=== PATIENT | female | born 1995 | race Caucasian/White ===

== ENCOUNTER 2016-07-01 22:21 | Outpatient (CLI) | payer OTHER ==
[~2016-07-01 22:21] MED LIST: AZIT250T94 PO; IBUP-1542 PO; PRED20TA PO
[2016-07-01] MEDS ORDERED: FER325 PO (23:02)
[2016-07-01] MEDS ORDERED: PREN1TAB79 PO (23:02)
[2016-07-01] MEDS ORDERED: OMEG-144 PO (23:04)
[2016-07-01 23:42] LABS: ADD SCAN DIFF NO
[2016-07-01 23:44] LABS: BASOPHILS % 0.3 % (0.0-2.0); EOSINOPHILS # 0.2 10^3/ul (0.0-0.5); EOSINOPHILS % 1.4 % (0.0-7.0); HEMATOCRIT 31.3 % (37.0-47.0); HEMOGLOBIN 10.5 g/dl (12.0-16.0); LYMPHOCYTES # 2.5 10^3/ul (0.8-2.9); LYMPHOCYTES % 22.4 % (18.0-55.0); MEAN CORPUSCULAR HEMOGLOBIN 29.5 pg (29.0-33.0); MEAN CORPUSCULAR HGB CONC 33.5 g/dl (32.0-37.0); MEAN CORPUSCULAR VOLUME 87.9 fl (72.0-104.0); MEAN PLATELET VOLUME 10.1 fl (7.4-10.4); MONOCYTE # 0.8 10^3/ul (0.3-0.9); MONOCYTES % 7.3 % (0.0-13.0); NEUTROPHIL # 7.5 10^3/ul (1.6-7.5); NEUTROPHILS % 68.1 % (30.0-74.0); PLATELET COUNT 314 10^3/UL (140-415); RED BLOOD COUNT 3.56 10^6/ul (4.20-5.40); RED CELL DISTRIBUTION WIDTH 13.2 % (11.5-14.5)
[2016-07-01 23:59] LABS: ADD UMIC NO; URINE BILIRUBIN (Dip) NEGATIVE (NEGATIVE); URINE BLOOD (Dip) NEGATIVE (NEGATIVE); URINE COLOR LT. YELLOW (YELLOW); URINE GLUCOSE (Dip) NEGATIVE (NEGATIVE); URINE KETONES (Dip) NEGATIVE (NEGATIVE); URINE LEUKOCYTE ESTERASE (Dip) NEGATIVE (NEGATIVE); URINE NITRITE (Dip) NEGATIVE (NEGATIVE); URINE TOTAL PROTEIN (Dip) NEGATIVE (NEGATIVE); URINE UROBILINOGEN (Dip) 0.2 E.U./dL (0.1-1.0)
--- NOTE | 2016-07-02 00:16 | RADRPT ---
PROCEDURE: Limited OB ultrasound CLINICAL INDICATION: Vaginal bleeding. TECHNIQUE: Limited sonographic evaluation of the gravid uterus was performed to assess the placent a. COMPARISON: None FINDINGS: Single live intrauterine with a heart rate 157 beats per minute is present. Fetus is in c ephalic presentation. The placenta is posterior and grade 1. There is no evidence for placental ab ruption or placenta previa. Cervix is 3.7 cm in length. IMPRESSION: Posterior placenta without evidence for placenta previa or abruption. RPTAT: HMVK .Will Montoya MD, Date Time Electronically viewed and signed by .Will Montoya MD, MD on 07/02/2016 00:15 .K/
--- NOTE | 2016-07-02 00:39 | QN ---
Documentation Comment Laborist Dr Becerril's pt 20 y.o. G1 with an IUP at 26w4d c/o bleeding. Pt had intercourse at 1500 07/01. She also fell yesterday but only hit her right knee, not her belly. No leaking. Denies any contractions or stomach tightening. PMHx: none. PSHx: arm surgery after a break. NKDA. BP 119/56 T=98.1 NST: baseline 140 bpm with accels to 155bpm. No decels. No UC's. Cx is 3.7 cm and closed. No previa or evidence of abruption. Placenta is posterior. U/A is negative. Hgb 10.5. Plts 314K. No blood noted since arrival. A: IUP at 26w4d. Spotting. P: D/C home. Pelvic rest x 2 weeks. NATALIA TORRES MD Jul 02, 2016 00:39
--- NOTE | 2016-07-02 00:47 | TRIAGE ---
OB Triage Datetime Report Generated by CPN: 07/02/2016 00:46 Datetime: 07/02/2016 00:27 Stage of : OB Triage Datetime: 07/01/2016 23:40 Stage of : OB Triage Labor Evaluation Frequency: NONE Monitor Mode: External Heart Rate FHR Baseline Rate: 140 Monitor Mode: External US Variability: Moderate 6-25 bpm Accelerations: 10X10 Decelerations: None Category: Category I Pain Assessment Pain Presence: None/Denies Datetime: 07/01/2016 23:29 Stage of : OB Triage Comments: EFM MONITOR OFF, DUE TO US TECH AT BEDSIDE FOR CL AND PLACENTA POSITION Datetime: 07/01/2016 22:54 Stage of : OB Triage Datetime: 07/01/2016 22:45 Stage of : OB Triage Maternal Assessment Level of Consciousness: Fully Conscious DTR's/Clonus: DTRs 2+; No Clonus Headache: Denies Blurred Vision: No Respiratory Effort: Unlabored; Regular Rhythm; Equal Expansion Breath Sounds, Left: Clear and Equal Breath Sounds, Right: Clear and Equal Nausea/Vomiting: Denies RUQ Epigastric Pain: Denies Lower Extremities Edema: None Upper Extremities Edema: None Facial Edema: None Temperature Route: Oral Fall Risk Assessment History of Falling: (0) No Secondary Diagnosis: (0) No Ambulatory Aid: (0) Bedrest/Nurse Assist IV Therapy: (0) No Gait: (0) Normal/Bedrest/Immobile Mental Status: (0) Oriented to Own Ability Fall Score: 0 Fall Risk Score Definition: No Risk: No action required Labor Evaluation Frequency: NONE Monitor Mode: External Heart Rate FHR Baseline Rate: 140 Monitor Mode: External US Variability: Moderate 6-25 bpm Accelerations: 10X10 Decelerations: None Category: Category I Pain Type: N/A Datetime: 07/01/2016 22:36 EGA: 26.3 Datetime: 07/01/2016 22:34 Time of Arrival: 07/01/2016 22:20 Arrived By: Wheelchair Arrived From: Home Chief Complaint: PT C/O VAGINAL BLOODY SHOW Movement: Decreased Contractions: Denies/Absent Rupture of Membranes: Denies Vaginal Bleeding: None Vaginal Discharge: Denies Recent Sexual Intercouse: Yes Abdominal Trauma: Not Applicable Patient Complaints: None Provider Notified: DR OLIVAREZ Initial Plan: TOCO AND EFM APPLIED, MONITOR UCs _ FHR.
== END 2016-07-02 00:30 | disposition home or self-care (01) ==
LOC: OBT 22:21 → L-D 22:22 → OBT 07-02 00:30
PROVIDERS: ATTEND Obstetrics & Gynecology
DX: O26.852 Spotting complicating pregnancy, second trimester (principal); Z3A.26 26 weeks gestation of pregnancy
CPT/HCPCS: 76815; 76817; 81003; 85025

== ENCOUNTER 2016-08-29 07:02 | Emergency (ER) | payer OTHER ==
[~2016-08-29] VITALS: Ht 157.5 cm; Wt 88.0 kg
[~2016-08-29 07:02] MED LIST changes: -AZIT250T94 PO; +FER325 PO; -IBUP-1542 PO; +OMEG-144 PO; -PRED20TA PO; +PREN1TAB79 PO
[2016-08-29 07:09] VITALS: Ht 157.5 cm; Wt 88.0 kg
[2016-08-29 07:55] LABS: ADD SCAN DIFF NO
[2016-08-29 08:01] LABS: BASOPHILS % 0.3 % (0.0-2.0); EOSINOPHILS # 0.1 10^3/ul (0.0-0.5); EOSINOPHILS % 1.3 % (0.0-7.0); HEMATOCRIT 32.9 % (37.0-47.0); HEMOGLOBIN 11.3 g/dl (12.0-16.0); LYMPHOCYTES # 1.8 10^3/ul (0.8-2.9); LYMPHOCYTES % 19.5 % (18.0-55.0); MEAN CORPUSCULAR HEMOGLOBIN 29.2 pg (29.0-33.0); MEAN CORPUSCULAR HGB CONC 34.3 g/dl (32.0-37.0); MEAN PLATELET VOLUME 9.7 fl (7.4-10.4); MONOCYTE # 0.5 10^3/ul (0.3-0.9); MONOCYTES % 5.7 % (0.0-13.0); NEUTROPHIL # 6.7 10^3/ul (1.6-7.5); NEUTROPHILS % 72.6 % (30.0-74.0); PLATELET COUNT 307 10^3/UL (140-415); RED BLOOD COUNT 3.87 10^6/ul (4.20-5.40); WHITE BLOOD COUNT 9.3 10^3/ul (4.8-10.8)
[2016-08-29 08:41] LABS: ALBUMIN 3.5 g/dl (3.3-4.9); ALBUMIN/GLOBULIN RATIO 1.59; BILIRUBIN,INDIRECT 0.4 mg/dl (0-1.1); BILIRUBIN,TOTAL 0.4 mg/dl (0.2-1.3); CALCIUM 8.7 mg/dl (8.4-10.2); CREATININE 0.51 mg/dl (0.44-1.00); TOTAL PROTEIN 5.7 g/dl (6.1-8.1)
--- NOTE | 2016-08-29 17:23 | ERD ---
ER Documentation Chief Complaint Date/Time DATE: 08/29/16 TIME: 17:21 Chief Complaint sent by her OB for lab work request, pt gained excessive weight in 2 weeks HPI This is a 20-year-old female stating that she is 34 weeks presenting to the emergency department to get blood work. Patient states that she was referred by her OB to check her liver enzymes. Patient states that she has gained 12 pounds in 2 weeks. She denies any abdominal pain, vaginal bleeding, headaches, chest pain, shortness of breath. She does not take any medications. ROS All systems reviewed and are negative except as per history of present illness. Medications Home Meds Reported Medications [place]-3/Dha/Epa/Fish Oil (Fish Oil 500 mg Softgel) 1 Each Capsule, 1 EACH PO, CAP 07/01/16 Ferrous Sulfate* (Ferrous Sulfate*) 325 Mg Tabec, 325 MG PO DAILY, TAB 07/01/16 Vit W-Ca,Fe,FA(<1 mg) ( Vitamins) 1 Each Tablet, 1 EACH PO DAILY, TAB 07/01/16 Allergies Allergies: Coded Allergies: No Known Allergy (Unverified , 11/13/15) PMhx/Soc Hx Alcohol Use: No Hx Substance Use: No Hx Tobacco Use: No Physical Exam Vitals Vital Signs Date Time Temp Pulse Resp B/P Pulse Ox O2 Delivery O2 Flow Rate FiO2 08/29/16 07:09 98.5 80 18 111/70 99 Physical Exam Const: [] Head: Atraumatic Eyes: Normal Conjunctiva ENT: Normal External Ears, Nose and Mouth. Neck: Full range of motion..~ No meningismus. Resp: Clear to auscultation bilaterally Cardio: Regular rate and rhythm, no murmurs Abd: Soft, non tender, distended due to . Normal bowel sounds Skin: No petechiae or rashes Back: No midline or flank tenderness Ext: No cyanosis, or edema Neur: Awake and alert Psych: Normal Mood and Affect Result Diagram: 08/29/16 0751 08/29/16 0751 Results 24 hrs Laboratory Tests Test 08/29/16 07:51 White Blood Count 9.310^3/ul Red Blood Count 3.8710^6/ul Hemoglobin 11.3g/dl Hematocrit 32.9% Mean Corpuscular Volume 85.0fl Mean Corpuscular Hemoglobin 29.2pg Mean Corpuscular Hemoglobin Concent 34.3g/dl Red Cell Distribution Width 13.0% Platelet Count 85571^3/UL Mean Platelet Volume 9.7fl Neutrophils % 72.6% Lymphocytes % 19.5% Monocytes % 5.7% Eosinophils % 1.3% Basophils % 0.3% Nucleated Red Blood Cells % 0.0/100WBC Neutrophils # 6.710^3/ul Lymphocytes # 1.810^3/ul Monocytes # 0.510^3/ul Eosinophils # 0.110^3/ul Basophils # 0.010^3/ul Nucleated Red Blood Cells # 0.010^3/ul Sodium Level 136mmol/L Potassium Level 4.0mmol/L Chloride Level 108mmol/L Carbon Dioxide Level 23mmol/L Anion Gap 9 Blood Urea Nitrogen 6mg/dl Creatinine 0.51mg/dl Glucose Level 81mg/dl Calcium Level 8.7mg/dl Total Bilirubin 0.4mg/dl Direct Bilirubin 0.00mg/dl Indirect Bilirubin 0.4mg/dl Aspartate Amino Transf (AST/SGOT) 20IU/L Alanine Aminotransferase (ALT/SGPT) 32IU/L Alkaline Phosphatase 106IU/L Total Protein 5.7g/dl Albumin 3.5g/dl Globulin 2.20g/dl Albumin/Globulin Ratio 1.59 Lipase 49U/L Procedures/MDM This is a 20-year-old female who states she is 34 weeks presenting to the emergency department referred by her DISSOLVER OPERATOR to get basic blood work since she has gained 12 pounds in 2 weeks. This is likely due to her and excessive eating and not exercising. Blood work has been done in the ED, there was no evidence of leukocytosis or anemia. CMP did not show any evidence of renal, liver or electrolyte abnormalities. Diagnostic testing was provided to patient and discussed with her to follow-up with her OB/ IMPROVEMENT RN for further evaluation management. Discussed return the ER for any worsening symptoms. She understands and agrees with this plan Departure Diagnosis: Primary Impression: Encounter for laboratory test Condition: Stable Patient Instructions: : Your Weight, : Planning Your Exercise Routine Referrals: NO PRIMARY,CARE PHYSICIAN (PCP) Additional Instructions: FOLLOW UP WITH YOUR PRIMARY CARE PHYSICIAN TOMORROW.Return to this facility if you are not improving as expected. Return to this facility if you are not improving as expected. SELINA VELASCO PA-C Aug 29, 2016 17:23
== END 2016-08-29 09:15 | disposition home or self-care (01) ==
LOC: FTE 07:02
DX: Z36 Encounter for antenatal screening of mother (principal); Z3A.34 34 weeks gestation of pregnancy
CPT/HCPCS: 36415; 80053; 83690; 85025; Z7502; 99283

== ENCOUNTER 2016-09-29 12:19 | Inpatient (IN) | payer OTHER ==
[~2016-09-29] VITALS: Ht 165.1 cm; Wt 93.9 kg
[2016-09-29] MEDS ORDERED: PNV11TAB PO (12:50)
[2016-09-29] MEDS ORDERED: CALC600T11 PO (12:51)
[2016-09-29 13:03] VITALS: BP 127/70; PULSE 94; RESP 18
--- NOTE | 2016-09-29 13:45 | RADRPT ---
PROCEDURE: US biophysical profile. CLINICAL INDICATION: Ruptured membranes. TECHNIQUE: Multiple sonographic images of the uterus were obtained. The images were revi ewed on a PACS workstation. COMPARISON: No prior studies are available for comparison. FINDINGS: There is a single live intrauterine gestation. heart rate is 152 beats per minute. The position is cephalic. The placenta is posterior grade II with no abruption or previa. The ISAC is 6.8 cm. (Normal = 5-20 cm.) Breathing Movement: 2 Gross Body Movement: 2 Tone: 2 Qualitative Amniotic Fluid Volume: 2 TOTAL: 8 IMPRESSION: 1. The biophysical score is 8/8. RPTAT: QQ .Beto Noble MD, MD Date Time Electronically viewed and signed by .Beto Noble MD, on 09/29/2016 13:45 .R/
[2016-09-29] MEDS ORDERED: MINERAL OIL LIGHT 10 ML VIAL TOP PRN (14:30)
[2016-09-29] MEDS ORDERED: OXYTOCIN 30 UNITS/LR 500 ML IV SCH ×2 (14:30)
[2016-09-29] MEDS ORDERED: MISOPROSTOL 200 MCG TAB PR PRN (14:30)
[2016-09-29] MEDS ORDERED: BUTORPHANOL 2 MG INJ IV PRN ×2 (14:30)
[2016-09-29] MEDS ORDERED: METHYLERGONOVINE 0.2 MG INJ IM PRN (14:30)
[2016-09-29] MEDS ORDERED: OXYTOCIN 30 UNITS/LR 500 ML IV PRN (14:30)
[2016-09-29] MEDS ORDERED: LIDOCAINE 1% (MPF) 30 ML INJ INJ PRN (14:30)
[2016-09-29] MEDS ORDERED: AMPICILLIN 2 GM/NS (PMX) 100 ML IV ONE (14:30)
[2016-09-29] MEDS ORDERED: IBUPROFEN 600 MG TAB PO PRN (14:30)
[2016-09-29] MEDS ORDERED: CARBOPROST 250 MCG INJ IM PRN (14:30)
[2016-09-29] MEDS: LACTATED RINGER'S 1,000 ML IV SCH ×2 (14:38→22:03)
[2016-09-29] MEDS ORDERED: LACTATED RINGER'S 1,000 ML IV PRN (15:00)
[2016-09-29 15:34] LABS: BASOPHILS % 0.2 % (0.0-2.0); EOSINOPHILS # 0.1 10^3/ul (0.0-0.5); EOSINOPHILS % 0.9 % (0.0-7.0); HEMATOCRIT 33.7 % (37.0-47.0); HEMOGLOBIN 11.3 g/dl (12.0-16.0); LYMPHOCYTES # 1.6 10^3/ul (0.8-2.9); LYMPHOCYTES % 15.3 % (18.0-55.0); MEAN CORPUSCULAR HEMOGLOBIN 28.5 pg (29.0-33.0); MEAN CORPUSCULAR HGB CONC 33.5 g/dl (32.0-37.0); MEAN CORPUSCULAR VOLUME 85.1 fl (72.0-104.0); MEAN PLATELET VOLUME 10.4 fl (7.4-10.4); MONOCYTE # 0.5 10^3/ul (0.3-0.9); MONOCYTES % 4.9 % (0.0-13.0); NEUTROPHIL # 8.4 10^3/ul (1.6-7.5); NEUTROPHILS % 78.1 % (30.0-74.0); PLATELET COUNT 346 10^3/UL (140-415); RED BLOOD COUNT 3.96 10^6/ul (4.20-5.40); RED CELL DISTRIBUTION WIDTH 13.4 % (11.5-14.5); WHITE BLOOD COUNT 10.7 10^3/ul (4.8-10.8)
--- NOTE | 2016-09-29 15:39 | TRIAGE ---
OB Triage Datetime Report Generated by CPN: 09/29/2016 15:39 Datetime: 09/29/2016 15:07 Membrane Status: Ruptured Datetime: 09/29/2016 15:00 Labor Evaluation Frequency: OCC Monitor Mode: External Duration (sec)2399: 60-90 Quality: Mild Pattern: Normal: <= 5 Contractions in 10 Minutes Resting Tone [place]: Relaxed Heart Rate FHR Baseline Rate: 135 FHR Baseline Changes: No Baseline Change Variability: Moderate 6-25 bpm Accelerations: 15X15 Comments: SPORADICALLY OFF MONITOR DUE TO PT POSIITON Datetime: 09/29/2016 14:00 Stage of : Labor Labor Evaluation Frequency: 4-12 Monitor Mode: External Duration (sec)2399: 40-80 Quality: Mild Pattern: Normal: <= 5 Contractions in 10 Minutes Resting Tone [place]: Relaxed Heart Rate FHR Baseline Rate: 140 Monitor Mode: External US FHR Baseline Changes: No Baseline Change Variability: Moderate 6-25 bpm Accelerations: 15X15 Decelerations: None Category: Category I Datetime: 09/29/2016 13:06 Labor Evaluation Frequency: 4-12 Monitor Mode: External Duration (sec)2399: 40-80 Quality: Mild Pattern: Normal: <= 5 Contractions in 10 Minutes Resting Tone [place]: Relaxed Heart Rate FHR Baseline Rate: 140 Monitor Mode: External US FHR Baseline Changes: No Baseline Change Variability: Moderate 6-25 bpm Accelerations: 15X15 Decelerations: None Category: Category I Datetime: 09/29/2016 12:56 Time of Arrival: 09/29/2016 12:09 EGA: 39.2 Arrived By: Ambulatory Arrived From: Home Chief Complaint: PT REPORTS SEVERAL GUSHES OF WATER, STARTING AT 0500 Movement: Present Contractions: Occasional Time Contractions Began: 09/29/2016 07:00 Rupture of Membranes: Unsure Vaginal Bleeding: None Vaginal Discharge: Present Recent Sexual Intercouse: Yes Abdominal Trauma: Not Applicable Patient Complaints: Cramping Time Provider Notified: 09/29/2016 14:10 Provider Notified: DR. OLIVAREZ Initial Plan: EFM x2, SVE, ROM+, BPP Datetime: 09/29/2016 12:46 Stage of : OB Triage Assessment Type: Triage Maternal Assessment Level of Consciousness: Fully Conscious Headache: Denies Blurred Vision: No Respiratory Effort: Unlabored; Regular Rhythm; Equal Expansion Breath Sounds, Left: Clear and Equal Breath Sounds, Right: Clear and Equal Nausea/Vomiting: Denies RUQ Epigastric Pain: Denies Lower Extremities Edema: None Degree: None Upper Extremities Edema: None Degree: None Facial Edema: None Temperature Route: Oral Fall Risk Assessment History of Falling: (0) No Secondary Diagnosis: (0) No Ambulatory Aid: (0) Bedrest/Nurse Assist IV Therapy: (0) No Gait: (0) Normal/Bedrest/Immobile Mental Status: (0) Oriented to Own Ability Fall Score: 0 Fall Risk Score Definition: No Risk: No action required Pain Assessment Pain Scale: 1 Pain Presence: Intermittent Pain Type: Cramping Pain Location: Abdomen (Annotations: LOWER ABDOMEN) Datetime: 09/29/2016 12:38 Vaginal Exam Dilatation (cms): 1.0 Effacement (%): 70 Station: -2 Exam By: CKUNIYOSHI Vaginal Bleeding: None Cervix, Consistency: Moderate Cervix, Position: Posterior Presentation 'A': Cephalic Datetime: 09/29/2016 12:36 Pool: Negative Datetime: 07/01/2016 22:45 Fall Score: 0 Fall Risk Score Definition: No Risk: No action required Datetime: 07/01/2016 22:36 EGA: 26.3 Arrived By: Ambulatory Arrived From: Home Chief Complaint: POSSIBLE RUPTURE OF MEMBRANES FROM 0500. Movement: Present Time Contractions Began: 09/29/2016 07:00 Rupture of Membranes: Unsure Vaginal Bleeding: None Vaginal Discharge: Present Recent Sexual Intercouse: Yes Abdominal Trauma: Not Applicable (Annotations: Data stored by CPN on behalf of user) Patient Complaints: Cramping
--- NOTE | 2016-09-29 15:42 | RADRPT ---
PROCEDURE: US OB. CLINICAL INDICATION: Ruptured membranes. TECHNIQUE: Multiple sonographic images of the uterus were obtained. The images were revi ewed on a PACS workstation. COMPARISON: No prior studies are available for comparison. FINDINGS: There is a single live intrauterine gestation. heart rate is 122 beats per minute. Measurements were made in order to determine age. The results are as follows: BPD = 8.86 cm. HC = 32.19 cm. AC = 34.05 cm. FL = 7.41 cm. Estimated weight is 3228 +/- 484 grams. LMP growth percentile is 28 %. Menstrual age by ultrasound dates is 37 weeks 0 days. The estimated date of delivery is 10/20/2016. Position is cephalic and placenta is posterior grade II. There is no evidence for an abruption or pl acenta previa. IMPRESSION: 1. Single live intrauterine gestation of 37 weeks 0 days menstrual age by ultrasound dates. 2. The estimated date of delivery is 10/20/2016. RPTAT: QQ .Beto Noble MD, Date Time Electronically viewed and signed by .Beto Noble MD, on 09/29/2016 15:42 .R/
[2016-09-29 15:59] LABS: INR 0.89; PT RATIO 0.9
[2016-09-29 16:00] LABS: PARTIAL THROMBOPLASTIN TIME 28.9 Sec (25.0-35.0)
--- NOTE | 2016-09-29 16:52 | HP ---
Date/Time of Note Date/Time of Note DATE: 09/29/16 TIME: 16:49 OB - History Hx of Present Free Text/Dictation Admitted complaining of spontaneous rupture of membranes at 39+ weeks Chief Complaint: Spontaneous rupture of membranes in labor pains Estimated Due Date: Oct 04, 2016 : 1 Para: 0 Care: Good Care Ultrasounds: Normal mid trimester US Obstetrical Complications: None Medical Complications: None Past Family/Social History * Past Medical, Surgical, Family and Obstetric Histories reviewed from chart. Blood Type: O+ Rubella: immune RPR/VDRL: Negative GBS Status: Unknown HBsAG: Negative OB Admission Exam Vital Signs Vital Signs Vital Signs Date Time Temp Pulse Resp B/P Pulse Ox O2 Delivery O2 Flow Rate FiO2 09/29/16 13:03 98.1 94 18 127/70 97 Room Air Physical Exam HEENT: WNL Heart: Rhythm Normal Lungs: Clear, Equal Abdomen: WNL Extremities: Normal Reflexes: Normal Cervical Dilatation: 1cm Effacement: 50% Station: -3 Membranes: Ruptured Amniotic Fluid: Clear Heart Rate: 140's Accelerations: Accelerations Present Decelerations: No Decelerations Varibility: Moderate Contractions on Admission: 6-10 Minutes Apart Date/Time Contractions Began: 0600 Am 09/29 Frequency of Contractions: q 5=10 Duration: >45 seconds Intensity: Mild Last 72 hours Lab Results CBC & BMP 09/29/16 14:38 OB Assessment/Plan Reason for admission: rupture of membranes Other Assessment: 39 weeks gestation Other plan: Will augment labor with Pitocin AJ HIDALGO MD Sep 29, 2016 16:52
[2016-09-29] MEDS: AMPICILLIN 1 GM/NS (PMX) 50 ML IV SCH ×2 (19:34→23:23)
[2016-09-29] MEDS ORDERED: FENTAnyl 2MCG/ML-ROPIV 0.2% 100 ML ONE (22:23)
[2016-09-29] MEDS ORDERED: FENTAnyl 2MCG/ML-ROPIV 0.2% 100 ML BAG EPI SCH (23:00)
[2016-09-29] MEDS ORDERED: NALOXONE (0.4 MG/ML) INJ IV PRN (23:00)
[2016-09-30] MEDS: AMPICILLIN 1 GM/NS (PMX) 50 ML IV SCH ×2 (03:31→07:32)
[2016-09-30] MEDS: LACTATED RINGER'S 1,000 ML IV SCH (05:05)
[2016-09-30] MEDS: OXYTOCIN 30 UNITS/LR 500 ML IV SCH ×2 (11:04→16:03)
--- NOTE | 2016-09-30 11:39 | LDN ---
Date/Time of Note Date/Time of Note DATE: 09/30/16 TIME: 11:35 Delivery Summary Normal spontaneous vaginal delivery of a female over intact perineum Weeks of Gestation 40 Placenta Delivered: Spontaneously, Intact & Complete Meconium: Light Episiotomy: No Laceration repair: 2 hymenal lacerations at 2 & 7 o'clock and a small vaginal laceration at 7 o'clock were repaired with 2-0 Vicryl Anesthesia type: Epidural Estimated blood loss: 300 Sponge & Needle done & correct: Yes All needle counts correct: Yes Any foreign bodies felt in the: No Problems: Infant Delivery Information Sex Infant Sex: female Apgars 1 Minute: 9 5 Minute: 9 Suctioning Nose & mouth suctioned at paulie: Yes Delee suction performed: No Umbilical Cord Umbilical cord with: 3 Vessels Cord presentations: no nuchal cord Cord Blood was obtained: Yes Mother & Baby Disposition Disposition Mom & Baby to Maternity; Good: Yes (Mother and baby were recovering in good condition) Mom transferred to: Other (Maternity) Baby to NICU: No AJ HIDALGO MD Sep 30, 2016 11:39
[2016-09-30] MEDS ORDERED: LACTATED RINGER'S 1,000 ML IV* SCH (12:28)
[2016-09-30] MEDS ORDERED: CARBOPROST 250 MCG INJ IM PRN (12:30)
[2016-09-30] MEDS ORDERED: WITCH HAZEL/GLYCERIN PAD PR PRN (12:30)
[2016-09-30] MEDS ORDERED: OXYTOCIN 30 UNITS/LR 500 ML IV PRN (12:30)
[2016-09-30] MEDS ORDERED: ZOLPIDEM 5 MG TAB PO PRN (12:30)
[2016-09-30] MEDS ORDERED: LANOLIN 7 GM TUBE TOP PRN (12:30)
[2016-09-30] MEDS ORDERED: ACETAMINOPHEN/CODEINE #3 TAB PO PRN ×2 (12:30)
[2016-09-30] MEDS ORDERED: METHYLERGONOVINE 0.2 MG INJ IM PRN (12:30)
[2016-09-30] MEDS ORDERED: MISOPROSTOL 200 MCG TAB PR PRN (12:30)
[2016-09-30] MEDS ORDERED: DIBUCAINE 1% 30 GM OINT TOP PRN (12:30)
[2016-09-30] MEDS ORDERED: BENZOCAINE 20% 56 ML SPRAY TOP PRN (12:30)
[2016-09-30 13:00] VITALS: BP 114/77; PULSE 71; RESP 16
[2016-09-30] MEDS: CEPHALEXIN 500 MG CAP PO SCH ×2 (13:40→18:52)
[2016-09-30 15:35] VITALS: BP 113/69; PULSE 73; RESP 15
[2016-09-30] MEDS: IBUPROFEN 600 MG TAB PO SCH (18:43)
[2016-09-30 20:00] VITALS: BP 123/73; PULSE 87; RESP 17
[2016-09-30] MEDS: MAGNESIUM HYDROXIDE 30ML CUP PO SCH (21:16)
[2016-09-30] MEDS: SENNA/DOCUSATE NA (8.6MG/50MG) TAB PO SCH (21:16)
[2016-10-01] MEDS: IBUPROFEN 600 MG TAB PO SCH ×4 (00:27→17:42)
[2016-10-01] MEDS: CEPHALEXIN 500 MG CAP PO SCH ×4 (00:27→17:42)
[2016-10-01 04:25] VITALS: BP 117/74; PULSE 72; RESP 18
[2016-10-01 08:15] LABS: BASOPHILS % 0.4 % (0.0-2.0); EOSINOPHILS # 0.1 10^3/ul (0.0-0.5); EOSINOPHILS % 1.5 % (0.0-7.0); HEMATOCRIT 30.2 % (37.0-47.0); HEMOGLOBIN 9.9 g/dl (12.0-16.0); MEAN CORPUSCULAR HEMOGLOBIN 28.2 pg (29.0-33.0); MEAN CORPUSCULAR HGB CONC 32.8 g/dl (32.0-37.0); MONOCYTE # 0.6 10^3/ul (0.3-0.9); MONOCYTES % 6.8 % (0.0-13.0); NEUTROPHIL # 6.6 10^3/ul (1.6-7.5); NEUTROPHILS % 69.9 % (30.0-74.0); PLATELET COUNT 279 10^3/UL (140-415); RED BLOOD COUNT 3.51 10^6/ul (4.20-5.40); RED CELL DISTRIBUTION WIDTH 13.5 % (11.5-14.5); WHITE BLOOD COUNT 9.4 10^3/ul (4.8-10.8)
[2016-10-01] MEDS: MAGNESIUM HYDROXIDE 30ML CUP PO SCH ×2 (08:46→21:00)
[2016-10-01] MEDS: SENNA/DOCUSATE NA (8.6MG/50MG) TAB PO SCH ×2 (08:46→21:00)
[2016-10-01 16:00] VITALS: BP 113/62; PULSE 68; RESP 16
--- NOTE | 2016-10-01 17:20 | DS ---
Date/Time of Note Date/Time of Note Home next day DATE: 10/01/16 TIME: 17:18 Obstetrical Discharge Record Final Diagnosis Final Diagnosis: Term delivered Other Final Diagnosis Status post vaginal delivery Vaginal Delivery Obstetrical Delivery: Spontaneous, Laceration, Repaired Complications Augmentation: Yes Condition on Discharge Physical Assessment Last Vitals: See nurse's note Voiding: Yes Bowel Movement: Yes Breast: Soft, non-tender, Filling Fundus: Firm Abdomen and Incision: Soft bowel sounds positive Fundus at umbilicus Episiotomy: Not applicable Calf Tenderness: No Patient Condition: Good AJ HIDALGO MD Oct 01, 2016 17:20
--- NOTE | 2016-10-01 17:20 | PD.PPDC ---
SENIOR CARE SPECIALIST Discharge Instruction Provider Information Physician Information 20-year-old female had vaginal delivery Diagnosis Final Diagnosis: Status post vaginal delivery Condition Patient Condition: Good Diet Diet: Resume Regular Diet Activity/Restrictions Activity: Normal Activity May Shower Restrictions: Nothing in the Vagina Return to Work or School: Nov 19, 2016 Follow-up Follow-up with Physician: 4, Week/Weeks (In clinic) Return to clinic for OB Instructions: Breast Tenderness Depression AJ HIDALGO MD Oct 01, 2016 17:20
[2016-10-01] MEDS ORDERED: IBUP-1542 PO (17:21)
[2016-10-01 22:00] VITALS: BP 123/62; PULSE 71; RESP 18
[2016-10-02 04:00] VITALS: BP 121/96; PULSE 74; RESP 18
[2016-10-02] MEDS: CEPHALEXIN 500 MG CAP PO SCH ×3 (06:22→13:01)
[2016-10-02] MEDS: IBUPROFEN 600 MG TAB PO SCH ×3 (06:23→13:01)
[2016-10-02 08:00] VITALS: BP 117/56; PULSE 72; RESP 18
[2016-10-02] MEDS: MAGNESIUM HYDROXIDE 30ML CUP PO SCH (08:14)
[2016-10-02] MEDS: SENNA/DOCUSATE NA (8.6MG/50MG) TAB PO SCH (08:14)
[2016-10-02] MEDS ORDERED: VARICELLA VACCINE LIVE/PF 1,350 UNIT/0.5 ML ML SC* ONE (09:00)
[2016-10-02] MEDS ORDERED: MEASLES,MUMPS,RUBELLA VACCINE INJ SC* ONE (09:00)
[2016-10-02] MEDS ORDERED: DIPHTH/TET/ACEL PERTUSS (ADULT) 0.5 ML VIAL IM* ONE (09:00)
[2016-10-02 12:56] LABS: RUBELLA ANTIBODY - IGG <0.90 index
== END 2016-10-02 16:30 | disposition home or self-care (01) | DRG 775 ==
LOC: OBT 12:19 → L-D 12:19 → OBT 13:50 → L-D 13:59 → PP1 09-30 12:39
PROVIDERS: ADMIT Obstetrics & Gynecology; ATTEND Obstetrics & Gynecology
PROC: 10E0XZZ Delivery of Products of Conception, External Approach (ICD-10-PCS; principal; 2016-09-30)
PROC: 0HQ9XZZ Repair Perineum Skin, External Approach (ICD-10-PCS; 2016-09-30)
DX: O70.0 First degree perineal laceration during delivery (principal); Z37.0 Single live birth; Z3A.39 39 weeks gestation of pregnancy
CPT/HCPCS: 36415; 62319; 76816; 76818; 84112; 85025; 85610; 85730; 86592; 86703; 86762; 86900; 86901; 87340; 90715; 90716; G0463; J0290; J2590; J3010; J7120